=== PATIENT | male | born 1995 | race Two or more races ===

== ENCOUNTER 2022-02-04 00:29 | Emergency (ER) | payer SELFPAY ==
[~2022-02-04] VITALS: Ht 172.7 cm; Wt 113.4 kg
--- NOTE | 2022-02-04 00:45 | NUR ---
TO ER BED 11. BIBRA 878 C/O LLQ ABD BRUISING, R THIGH BRUISING, AND L HAND LAC POSSIBLE GLASS. -LOC +AB +SB. AAOX4. BREATHING EVEN AND UNLABORED. CONNECTED TO MONITOR. VSS. AWAITING MD ROBLERO
[2022-02-04] MEDS ORDERED: IOHEXOL-350 100 ML VIAL IV ONE (01:11)
[2022-02-04] MEDS ORDERED: IV NS 0.9% 250 ML IV ONE (01:11)
--- NOTE | 2022-02-04 01:15 | NUR ---
LAST DIPPER AT PT'S BEDSIDE
[2022-02-04 01:49] LABS: BASOPHILS % (AUTO) 0.4 % (0.0-2.0); EOSINOPHILS % (AUTO) 2.6 % (0.0-6.0); HEMATOCRIT 45 % (39-51); HEMOGLOBIN 15.5 g/dL (13.5-17.5); LYMPHOCYTES # (AUTO) 2.2 K/uL (0.8-4.8); LYMPHOCYTES % (AUTO) 26.2 % (20.0-44.0); MEAN CORPUSCULAR HGB CONC 35 g/dl (31.0-36.0); MEAN CORPUSCULAR VOLUME 89 fL (80-96); MONOCYTES # (AUTO) 0.6 K/uL (0.1-1.30); MONOCYTES % (AUTO) 7.1 % (2.0-12.0); NEUTROPHILS # (AUTO) 5.3 K/uL (1.8-8.9); NEUTROPHILS % (AUTO) 63.7 % (43.0-81.0); PLATELET COUNT (AUTO) 271 K/uL (150-450); RED BLOOD CELL COUNT(AUTO) 5.07 MIL/uL (4.5-6.0); WHITE BLOOD COUNT (AUTO) 8.3 K/uL (4.3-11.0)
[2022-02-04 02:29] LABS: CREATININE 1.1 mg/dL (0.6-1.3); POTASSIUM 3.5 mmol/L (3.5-5.1)
[2022-02-04 04:27] VITALS: BP 136/60
--- NOTE | 2022-02-04 04:27 | NUR ---
Patient discharged to home in stable condition. Written and verbal after care instructions given. Patient verbalizes understanding of instruction.
[2022-02-04] MEDS ORDERED: NAPR-1192 PO (05:01)
== END 2022-02-04 05:19 | disposition home or self-care (01) ==
LOC: ER 00:30
DX: S30.1XXA Contusion of abdominal wall, initial encounter (principal); S60.512A Abrasion of left hand, initial encounter; M54.50 Low back pain, unspecified; V49.49XA Driver injured in collision with other motor vehicles in traffic accident, initial encounter; Y93.89 Activity, other specified; Y92.89 Other specified places as the place of occurrence of the external cause; Y99.8 Other external cause status
CPT/HCPCS: 36415; 72131; 73130; 74177; 80048; 85025; 99285; J7050; Q9967